=== PATIENT | female | born 1980 | race American Indian/Alaskan Native ===

== ENCOUNTER 2017-09-26 18:33 | Emergency (ER) | payer OTHER ==
[2017-09-26 18:34] VITALS: BMI 37.8
[2017-09-26 18:45] VITALS: RESP 16; O2SAT 100
[2017-09-26] MEDS ORDERED: Sodium Chloride 0.9% 1,000 ML IV ONE (19:02)
--- NOTE | 2017-09-26 19:17 | C.PDOC ---
History Of Present Illness 37 year old female presents to the emergency department with complaints of heavy vaginal bleeding since yesterday. Patient states that her menstrual period began earlier than anticipated, and that her last normal menstrual period was on 09/01/17. Patient reports that her normal menstrual periods are heavy the first day and become "medium to light" as the days go on, lasting for a total of six days. She also reports that she changed her menstrual pad four times today, and reports feeling drained. She had some clots. She has a history of anemia, and is /A3. Time Seen by Provider: 09/26/17 18:47 Chief Complaint (Nursing): Female Genitourinary History Per: Patient History/Exam Limitations: no limitations Onset/Duration Of Symptoms: Days (1) Current Symptoms Are (Timing): Still Present Quality Of Discomfort: Other ("drained") Abnormal Vaginal Bleeding: Yes Last Menstral Period: September 01 : 6 Para: 3 Miscarriage: 3 Past Medical History Reviewed: Historical Data, Nursing Documentation, Vital Signs Vital Signs: Last Vital Signs Temp 97.4 F L 09/26/17 20:00 Pulse 72 09/26/17 20:00 Resp 16 09/26/17 20:00 BP 135/81 09/26/17 20:00 Pulse Ox 100 09/26/17 20:00 - Medical History PMH: Anemia, Gall Bladder Disease, Parkinson's Disease, Seizures (in childhood) Surgical History: Cholecystectomy Family History: States: No Known Family Hx - Social History Hx Alcohol Use: No Hx Substance Use: No - Immunization History Hx Tetanus Toxoid Vaccination: No Hx Influenza Vaccination: Yes Hx Pneumococcal Vaccination: No Review Of Systems Except As Marked, All Systems Reviewed And Found Negative. Genitourinary: Positive for: Vaginal Bleeding Physical Exam - Physical Exam Appears: Non-toxic, No Acute Distress Skin: Warm, Dry, No Rash Head: Atraumatic, Normacephalic Eye(s): bilateral: Normal Inspection, EOMI Neck: Normal ROM Chest: Symmetrical Cardiovascular: Rhythm Regular, No Murmur Respiratory: Normal Breath Sounds, No Wheezing Gastrointestinal/Abdominal: Normal Exam, Soft, No Tenderness, No Guarding Extremity: Bilateral: Atraumatic, Normal Color And Temperature, Normal ROM Neurological/Psych: Normal Speech Gait: Steady ED Course And Treatment - Laboratory Results Result Diagrams: 04/21/18 19:26 Lab Interpretation: Abnormal O2 Sat by Pulse Oximetry: 100 (RA) Pulse Ox Interpretation: Normal Medical Decision Making Medical Decision Making: Impression: vaginal bleeding Plan: --CBC --coags --NaCl 1000 ml IV --Urinalysis Labs reviewed and Hgb is 10.4 Contact strategic development manager on service Dr Avalos to discuss case and she recommends provera and to have patient follow up with strategic development manager on 09/28 Patient re-evaluated and was resting comfortably in no distress. She has stable vital signs. I explained lab results and Hgb level, she is not sure of her normal. I explained plan and she is agreeable to follow up with stage director in 2 days. Provera PO ordered and Rx given. Disposition Counseled Patient/Family Regarding: Diagnosis, Need For Followup, Rx Given - Disposition Referrals: [facility] [Outside] [facility] [Outside] Disposition: HOME/ ROUTINE Disposition Time: 19:49 Condition: STABLE Additional Instructions: take medication as prescribed follow up with strategic development manager in few days Return to the emergency department at any time if symptoms persist or worsen. Prescriptions: MedroxyPROGESTERone [Provera] 10 mg PO BID #10 tab Instructions: Menstrual Cramps (DC) Forms: [employer] (Telugu) - POA Present On Arrival: None - Clinical Impression Clinical Impression: Episode of heavy vaginal bleeding - PA / [employer] OPERATOR / Resident Statement MD/DO has reviewed & agrees with the documentation as recorded. - Scribe Statement The provider has reviewed the documentation as recorded by the Scribe (Benjamin Gifford)
[2017-09-26 19:29] LABS: BASO % 0.4 % (0.0-2.0); EOS # 0.2 K/uL (0.0-0.7); HEMOGLOBIN 10.4 g/dL (11.0-16.0); LYMPH % 40.6 % (20.0-40.0); MEAN CELL VOLUME 83.6 fL (81.0-99.0); MEAN CORPUSCULAR HGB CONC 33.5 g/dL (33.0-37.0); MEAN PLATELET VOLUME 7.5 fL (7.2-11.7); MONO # 0.7 K/uL (0.0-0.8); MONO % 9.8 % (0.0-10.0); NEUT # 3.4 K/uL (1.8-7.0); NEUT % 46.2 % (50.0-75.0); RBC 3.7 Mil/uL (3.80-5.20); RED CELL DISTRIBUTION WIDTH 12.9 % (11.5-14.5); WHITE BLOOD COUNT 7.4 K/uL (4.8-10.8)
[2017-09-26 19:39] LABS: INR 1.1; PROTHROMBIN TIME 11.8 SECONDS (9.7-12.2)
[2017-09-26 19:39] LABS: HCG,QUALITATIVE URINE NEGATIVE (NEGATIVE)
[2017-09-26 19:44] LABS: SQUAMOUS EPITHIAL 7 /hpf (0-5); URINE BILIRUBIN NEGATIVE (NEGATIVE); URINE BLOOD 3+ (NEGATIVE); URINE CLARITY Hazy (Clear); URINE COLOR RED (YELLOW); URINE GLUCOSE (UA) 1+ mg/dL (Normal); URINE LEUKOCYTE ESTERASE TRACE Leu/uL (Negative); URINE PROTEIN 2+ mg/dL (NEGATIVE); URINE UROBILINOGEN NORMAL mg/dL (0.2-1.0)
[2017-09-26 20:00] VITALS: BP 135/81; PULSE 72; TEMP 97.4
== END 2017-09-26 20:00 | disposition home or self-care (01) ==
LOC: C.ER 18:33
DX: N93.9 Abnormal uterine and vaginal bleeding, unspecified (principal); G20 Parkinson's disease

== ENCOUNTER 2018-01-04 17:06 | Emergency (ER) | payer OTHER, MEDICAID ==
[2018-01-04 17:06] VITALS: BMI 37.8
[2018-01-04 17:22] VITALS: RESP 20; O2SAT 100
[2018-01-04] MEDS ORDERED: Sodium Chloride 0.9% 1,000 ML ONE (19:29)
[2018-01-04] MEDS: Sodium Chloride 0.9% 1,000 ML IV ONE (19:35)
[2018-01-04 19:52] LABS: BASO % 0.4 % (0.0-2.0); EOS # 0.1 K/uL (0.0-0.7); EOS % 1.8 % (0.0-4.0); HEMOGLOBIN 11.1 g/dL (11.0-16.0); LYMPH # 1.8 K/uL (1.0-4.3); LYMPH % 33.6 % (20.0-40.0); MEAN CELL VOLUME 80.1 fL (81.0-99.0); MEAN CORPUSCULAR HEMOGLOBIN 26.5 pg (27.0-31.0); MEAN CORPUSCULAR HGB CONC 33.1 g/dL (33.0-37.0); MEAN PLATELET VOLUME 7.5 fL (7.2-11.7); MONO # 0.5 K/uL (0.0-0.8); MONO % 8.8 % (0.0-10.0); NEUT # 2.9 K/uL (1.8-7.0); NEUT % 55.4 % (50.0-75.0); RBC 4.19 Mil/uL (3.80-5.20); RED CELL DISTRIBUTION WIDTH 14.2 % (11.5-14.5); WHITE BLOOD COUNT 5.3 K/uL (4.8-10.8)
[2018-01-04 20:04] LABS: ALB/GLOB RATIO 1.1 (1.0-2.1); ALBUMIN 4.2 g/dL (3.5-5.0); ALT/SGPT 25 U/L (9-52); AST/SGOT 22 U/L (14-36); BLOOD UREA NITROGEN 13 mg/dL (7-17); GFR AFRICAN-AMERICAN > 60; GFR NON-AFRICAN AMERICAN > 60
[2018-01-04 20:26] VITALS: BP 135/83; PULSE 88; TEMP 98.2
--- NOTE | 2018-01-04 20:54 | C.PDOC ---
Time Seen by Provider: 01/04/18 18:48 Chief Complaint (Nursing): Headache History Per: Patient Onset/Duration Of Symptoms: Days (few), Intermittent Episodes, Gradual Current Symptoms Are (Timing): Still Present Severity: Moderate Quality: "Pain" Associated Symptoms: Nausea Additional History Per: Prior Records Past Medical History Reviewed: Historical Data, Nursing Documentation, Vital Signs Vital Signs: Last Vital Signs Temp 98.2 F 01/04/18 20:25 Pulse 88 01/04/18 20:25 Resp 20 01/04/18 20:25 BP 135/83 01/04/18 20:25 Pulse Ox 100 01/04/18 20:25 - Medical History PMH: Anemia, Migraine, Seizures (in childhood) Surgical History: Cholecystectomy Family History: States: Unknown Family Hx - Social History Hx Alcohol Use: No Hx Substance Use: No - Immunization History Hx Tetanus Toxoid Vaccination: Yes Hx Influenza Vaccination: Yes Hx Pneumococcal Vaccination: No Review Of Systems Except As Marked, All Systems Reviewed And Found Negative. Constitutional: Negative for: Fever, Weakness Cardiovascular: Negative for: Chest Pain Respiratory: Negative for: Shortness of Breath Gastrointestinal: Negative for: Abdominal Pain Skin: Negative for: Rash Neurological: Positive for: Headache. Negative for: Weakness, Numbness, Seizures Physical Exam - Physical Exam Appears: Non-toxic, No Acute Distress Skin: Normal Color, Warm, Dry, No Rash Head: Atraumatic, Normacephalic Eye(s): bilateral: PERRL, EOMI Neck: Normal ROM, Supple Cardiovascular: Rhythm Regular Respiratory: Normal Breath Sounds, No Accessory Muscle Use Gastrointestinal/Abdominal: Soft, No Tenderness Extremity: Normal ROM Neurological/Psych: Oriented x3, Normal Speech, Normal Cognition, No Cerebellar Signs, Normal Motor, Normal Sensation ED Course And Treatment - Laboratory Results Result Diagrams: 01/04/18 19:47 01/04/18 19:47 Lab Interpretation: No Acute Changes O2 Sat by Pulse Oximetry: 100 Pulse Ox Interpretation: Normal Progress - Interventions Interventions:: Observation, Intravenous fluid - Medications Administered Oral: Acetaminophen Intravenous: Antiemetic - Data Reviewed Data Reviewed: Lab, Old records - Patient Status Patient status: Mostly improved - Continuity of Care Discussed patient case with:: Patient, ED Nurse - Patient Plan Patient Plan: Discharge, F/U with PCP Disposition Counseled Patient/Family Regarding: Studies Performed, Diagnosis, Need For Followup, Rx Given - Disposition Disposition: HOME/ ROUTINE Disposition Time: 20:54 Condition: IMPROVED Additional Instructions: Follow up with your doctor for further evaluation and treatment. Return to the ER if you develop weakness, numbness, vomiting, worsening of symptoms or if you have any other concerns. Prescriptions: Acetaminophen/Butalbital/Caf [Fioricet] 1 tab PO TID PRN #20 tab PRN Reason: Headache Instructions: Headache, Adult (DC) Forms: [employer] (Telugu) - Clinical Impression Clinical Impression: Headache
== END 2018-01-04 21:28 | disposition home or self-care (01) ==
LOC: C.ER 17:06
DX: R51 Headache (principal)
CPT/HCPCS: 80053; 83735; 85025; 96374; 99285; J2765; J7030